=== PATIENT | female | born 1985 | race Caucasian/White ===

== ENCOUNTER → 2019-07-03 14:30 | Outpatient (BNVA) | payer BC, SELFPAY | PROVIDERS: Family Provider Family Medicine; PCP Family Medicine; Visit Provider Nurse Practitioner Women's Health | DX: Z30.46 Encounter for surveillance of implantable subdermal contraceptive (principal); N87.1 Moderate cervical dysplasia | CPT/HCPCS: 88175 ==

== ENCOUNTER → 2019-10-11 16:32 | Outpatient (BNVA) | payer BC, SELFPAY | PROVIDERS: Family Provider Family Medicine; PCP Family Medicine; Visit Provider Obstetrics & Gynecology | DX: Z32.01 Encounter for pregnancy test, result positive (principal) | CPT/HCPCS: 81025 ==

== ENCOUNTER → 2019-11-14 11:11 | Outpatient (BNVA) | payer BC, SELFPAY | PROVIDERS: Family Provider Family Medicine; PCP Family Medicine; Visit Provider Obstetrics & Gynecology | DX: O09.299 Supervision of pregnancy with other poor reproductive or obstetric history, unspecified trimester (principal); Z86.32 Personal history of gestational diabetes | CPT/HCPCS: 80053; 80307; 82950; 83036; 85027; 86592; 86762; 86803; 86850; 86900; 87340 ==

== ENCOUNTER → 2019-11-28 00:01 | Outpatient (BNVA) | payer BC, SELFPAY | PROVIDERS: Family Provider Family Medicine; PCP Family Medicine; Visit Provider Obstetrics & Gynecology | DX: O09.90 Supervision of high risk pregnancy, unspecified, unspecified trimester (principal); O24.319 Unspecified pre-existing diabetes mellitus in pregnancy, unspecified trimester; N87.1 Moderate cervical dysplasia | CPT/HCPCS: 80053; 82570; 84156 ==

== ENCOUNTER → 2019-12-10 10:07 | Outpatient (BNVA) | payer BC, SELFPAY | PROVIDERS: Family Provider Family Medicine; PCP Family Medicine; Visit Provider Obstetrics & Gynecology | DX: O09.90 Supervision of high risk pregnancy, unspecified, unspecified trimester (principal) | CPT/HCPCS: 84315; 87491; 87591 ==

== ENCOUNTER → 2020-02-12 11:32 | Outpatient (BNVA) | payer BC, SELFPAY | PROVIDERS: Family Provider Family Medicine; PCP Family Medicine; Visit Provider Obstetrics & Gynecology | DX: O24.112 Pre-existing type 2 diabetes mellitus, in pregnancy, second trimester (principal) | CPT/HCPCS: 83036; 84315 ==

== ENCOUNTER → 2020-04-07 09:24 | Outpatient (BNVA) | payer BC, SELFPAY | PROVIDERS: Family Provider Family Medicine; PCP Family Medicine; Visit Provider Obstetrics & Gynecology | DX: O26.891 Other specified pregnancy related conditions, first trimester (principal); Z67.91 Unspecified blood type, Rh negative | CPT/HCPCS: 84315; 85027; 86850 ==

== ENCOUNTER → 2020-04-08 10:35 | Outpatient (BNVA) | payer BC, SELFPAY | PROVIDERS: Family Provider Family Medicine; PCP Family Medicine; Visit Provider Obstetrics & Gynecology | DX: O26.891 Other specified pregnancy related conditions, first trimester (principal); Z67.91 Unspecified blood type, Rh negative; O24.113 Pre-existing type 2 diabetes mellitus, in pregnancy, third trimester; O26.893 Other specified pregnancy related conditions, third trimester; Z3A.29 29 weeks gestation of pregnancy | CPT/HCPCS: 83036 ==

== ENCOUNTER → 2020-05-26 09:03 | Outpatient (BNVA) | payer BC, SELFPAY | PROVIDERS: Family Provider Family Medicine; PCP Family Medicine; Visit Provider Obstetrics & Gynecology | DX: O09.90 Supervision of high risk pregnancy, unspecified, unspecified trimester (principal); O24.112 Pre-existing type 2 diabetes mellitus, in pregnancy, second trimester; O99.013 Anemia complicating pregnancy, third trimester; O26.891 Other specified pregnancy related conditions, first trimester; Z67.91 Unspecified blood type, Rh negative | CPT/HCPCS: 84315; 87081 ==

== ENCOUNTER → 2020-06-12 11:22 | Outpatient (BNVA) | payer BC, SELFPAY | PROVIDERS: Family Provider Family Medicine; PCP Family Medicine; Visit Provider Obstetrics & Gynecology | DX: Z01.812 Encounter for preprocedural laboratory examination (principal); Z20.822 Contact with and (suspected) exposure to COVID-19 | CPT/HCPCS: 87635 ==

== ENCOUNTER 2020-06-15 21:45 | Inpatient (IN) | payer BC, SELFPAY ==
[2020-06-15 21:20] VITALS: BMI 29.5
[2020-06-15 21:24] VITALS: BP 132/82; PULSE 123; O2SAT 99
[2020-06-15 21:36] VITALS: BP 128/75; PULSE 114
[2020-06-15 22:26] VITALS: TEMP 36.5
[2020-06-15] MEDS: dextrose 5%-sod chloride 0.45% 1,000 ML 125 ML IV (22:49)
[2020-06-15 23:05] LABS: Glucose Point of Care 132 mg/dL (70-110)
[2020-06-15 23:16] VITALS: BP 129/69; PULSE 77
[2020-06-15 23:20] LABS: Basophils % 0.5 %; Eosinophils # 0.1 10^3/uL (0.0-0.8); Eosinophils % 1.7 %; Hematocrit 34.1 % (37.0-47.0); Hemoglobin 11.2 g/dL (11.5-15.3); Lymphocytes # 1.9 10^3/uL (0.8-4.8); Lymphocytes % 31.5 %; Mean Corpuscular HGB Conc 32.8 g/dL (30.0-36.0); Mean Corpuscular Hemoglobin 31.5 pg (28.0-34.0); Mean Corpuscular Volume 96.1 fL (81-99); Monocytes # 0.3 10^3/uL (0.2-0.9); Monocytes % 4.7 %; Neutrophils # 3.65 10^3/uL (1.8-7.7); Neutrophils % 61.3 %; Nucleated Red Blood Cells % 0 %; Platelet Count 211 10^3/cmm (130-400); Red Blood Count 3.55 10^6/uL (4.1-5.3); Red Cell Distribution Width 14.6 % (12.1-15.1)
[2020-06-15 23:46] VITALS: BP 119/60; PULSE 81
[2020-06-16] VITALS (42 sets, daily range): BP systolic 98–165; BP diastolic 50–92; PULSE 57–88; RESP 16; TEMP 35.7–36.8; O2SAT 99–100
[2020-06-16] MEDS: miSOPROStol 100 mcg tablet 25 MCG VAGINAL (00:05)
[2020-06-16] MEDS: lactated ringers 1,000 ML 999 ML IV (02:28)
--- NOTE | 2020-06-16 06:00 | ANES.PREANE2 ---
Pre-Anesthetic Assessment Pre-Anesthetic Assessment: Height/Weight: Height 1.78 m Weight 93.44 kg Temp Pulse BP Pulse Ox 98.3 F 77 135/72 100 06/16/20 02:00 06/16/20 06:10 06/16/20 06:10 06/16/20 06:03 Preop Diagnosis: IUP Was Beta Malathi taken within 24 hours: N/A Was Clonidine taken within 24 hours: N/A Social: Social History: Tobacco (chew) Exam: Pre-Anes Outpt Exam: alert, oriented x 3 and clear to auscultation bilaterally Airway: Submandibular: WNL Cervical ROM: WNL MP: 2 History/ROS: No significant history except as noted Pulmonary: Pulmonary: None reported CV/HEM: CV/HEM: Anemia : : None reported Hepatic: Hepatic: None reported GI: GI: None reported Metabolic: Metabolic: DM Musc/skel: Musc/skel: None reported Neuropsych: Neuropsych: None reported Anesthetic Plan: ASA status: 2 Anesthesia: Anesthesia Evaluation Risk of > 500 ml blood loss (7ml/kg in children): No Meds/Allergies Current Medications: Current Medications Generic Name Dose Route Start Last Admin Trade Name Freq PRN Reason Stop Dose Admin Lactated Ringer's 1,000 mls @ 999 m ls/hr 06/15/20 22:26 06/16/20 02:28 Lactated Ringers IV 999 mls/hr .Q1H1M PRN Administration Per L&D Rescitati on Protocol Dextrose/Sodium Ch loride 1,000 mls @ 125 m ls/hr 06/15/20 22:30 06/15/20 22:49 Dextrose 5%-Sod Chloride 0.45% IV 125 mls/hr .Q8H NORA Administration Misoprostol 25 mcg 06/15/20 22:30 06/16/20 00:05 Misoprostol 100 Mcg Tablet VAGINAL 06/16/20 10:31 25 mcg Q4H NORA Administration PFSH Anesthesia PFSH: Medical History Diabetes mellitus Diagnosed 11/26/2019 at time of her second with a hemoglobin A1c of 9 No pertinent past medical history Denies chronic hypertension, asthma, DVT/PE, seizures. PMD: none Surgical History No pertinent past surgical history Family History Family/Other Adopted Patient was adopted and does not know the details of her biological family history. Social History Quit status (tobacco): has quit using tobacco Alcohol intake: never Additional social history: - Tobacco use: chewing tobacco-- stopped when found out she was Alcohol use: one beer Few times a week prior to Drug use: Never Female Reproductive History: : 2 Data Anesthesia CBC & Chem 7: 06/15/20 22:13 Other Labs: Laboratory Results - last 48 hr 06/15/20 06/15/20 06/15/20 22:13 22:13 22:37 WBC 6.0 RBC 3.55 L Hgb 11.2 L Hct 34.1 L MCV 96.1 MCH 31.5 MCHC 32.8 RDW 14.6 Plt Count 211 MPV 10.0 Neut % (Auto) 61.3 Lymph % (Auto) 31.5 [place] % (Auto) 4.7 Eos % (Auto) 1.7 Baso % (Auto) 0.5 Neut # (Auto) 3.65 Lymph # (Auto) 1.9 [place] # (Auto) 0.3 Eos # (Auto) 0.1 Baso # (Auto) 0.0 Nucleated RBC % (auto) 0 Nucleated RBCs # 0.0 POC Glucose 132 H Blood Type A Negative Rho(D) Type Negative / 0 Antibody Screen Positive Antibody Identification Anti-D Cardiac Studies: No Data to Display
[2020-06-16 06:23] LABS: Glucose Point of Care 129 mg/dL (70-110)
[2020-06-16 06:23] LABS: Glucose Point of Care 89 mg/dL (70-110)
[2020-06-16] MEDS: dextrose 5%-sod chloride 0.45% 1,000 ML 125 ML IV (06:23)
--- NOTE | 2020-06-16 06:23 | ANES.PROC ---
Anesthesia Procedures Procedure/Date: 06/16/20 Epidural: Time Out Performed: Yes Consents Signed: Procedure Consent Consent: requested by attending/covering physician Lumbar Level: L3-L4 Epidural position: sitting Epidural procedure: sterile prep of area, 1% lidocaine to numb the area, 18 g needle, negative for paresthesia passed, neg for paresthesia, test dose given, 1.5% xylocaine 1:200k epi (5ml), placed PCEA, no systemic response, sterile dressing applied, L.U.D. no apparent complications and 0.2% Ropiavacaine @ mls/hr (13)
[2020-06-16] MEDS: carboprost tromethamine 250 mcg/mL Amp IM (11:39)
[2020-06-16] MEDS: miSOPROStol 200 mcg Tablet 800 MCG PR (11:40)
[2020-06-16] MEDS: ibuprofen 800 mg tablet PO ×2 (15:29→21:25)
[2020-06-16 16:31] LABS: Glucose Point of Care 68 mg/dL (70-110)
[2020-06-16 16:31] LABS: Glucose Point of Care 91 mg/dL (70-110)
[2020-06-16 16:31] LABS: Glucose Point of Care 123 mg/dL (70-110)
--- NOTE | 2020-06-16 16:45 | P.PCNOB_ITS ---
Delivery Note: Date of delivery: June 16, 2020 - PRE-DELIVERY DIAGNOSIS: 34-year-old 2 para 1-0-0-1 at 39 weeks and 0 days Type II diabetic on insulin Rh- GBS negative Anemia on iron History of macrosomia POST-DELIVERY DIAGNOSIS: Vaginal delivery on 06/16/2020 PROCEDURE: Vaginal delivery on 06/16/2020 ANESTHESIA: Epidural anesthesia DELIVERING PHYSICIAN: Anisa Thibodeaux FACOG PRE-DELIVERY COURSE: Ms. Chavis is a 34-year-old 2 para 1-0-0-1 at 38 weeks and 6 days who presented for scheduled induction of labor at 9 PM on 06/15/2020. She is a type II diabetic well controlled on insulin. On initial evaluation she was noted to be 2 cm 50% and -3 station. Induction was started on 06/16/2020 at midnight when she was 39 weeks gestation. Cytotec was placed and with this she started to have regular contractions every 2 to 3 minutes. 4 hours later she had made some cervical change to 3 cm 50% and -3 station however had regular 2 to 3-minute contractions and was growing very uncomfortable. An epidural was placed and she was much more comfortable after this. On exam at 6:40 AM on 06/16/2020 after the epidural was placed she was noted to be 4 to 5 cm, 60% and - 3 station and artificial rupture of membranes was performed with clear blood- tinged fluid. tracing was category 1. She made progressive cervical change and was fully dilated at 10:45 AM. She was set up in lithotomy position and started pushing by 11:15 AM. Fingersticks during this time were adjusted with IV fluids. Vital signs were otherwise stable DELIVERY NOTE: She was set up in lithotomy position and was pushing effectively. She was noted to be +3 station and continued pushing well. The head delivered in TAWANA position, no nuchal cord was present. The shoulders and rest of the body followed with her next push. The baby's mouth and nose were suctioned and the baby was placed on the mother's belly. Once cord pulsations stopped the cord was clamped and cut. The placenta delivered spontaneously intact with membranes and was discarded. The fundus was noted to be firm and well contracted. The lower uterine segment was extremely boggy and did not respond well to uterine massage. 800 mcg of Cytotec and a single dose of Hemabate were given and uterine massage was continued and with this the lower uterine segment tone improved. The vagina and cervix were inspected and no cervical or sulcal lacerations were noted. The perineum was noted to be intact except for a first- degree vaginal laceration that was repaired with a rghbrh-tm-aoort suture. Baby girl, Iain Dolna born at 11:18 AM on 06/16/2020 with 9/9, weighing 7 pounds 15 ounces, 3590 g, 20 inches long. Placenta was delivered spontaneously intact with membranes. Cotyledons were intact , centrally inserted umbilical cord with 3 vessels noted. Estimated blood loss 400 mL. Complications-mild uterine atony which responded to medication. Both baby and mother were left to recover in a stable condition. This documentation was created by [employer] mine engineering manager software (known for inherent mine engineering manager error). Every effort was made to assure accuracy of mine engineering manager. Any obvious errors or omissions should be clarified with the author of the document. Coding Level of Care Code Acute Rotary Engraver for Chg Fwd History History History 2 Term 2 Miscarriages/Ectopic 0 0 Living Children 2 Other History: 2 Para 2002, x 2 1: 06/02/2017--vaginal delivery at 39 weeks gestation. Male;([place]) 9.5 pounds (4340g) complicated by diet-controlled gestational diabetes; hemorrhage. [place] [facility] [place]. Vizcaino Gravid 2---> 06/16/2020--vaginal delivery at 39 weeks gestation-induction for type 2 [id number] on insulin. Delivered by Dr. Thibodeaux at [facility] [place]. Baby girl weighing 7 pounds 15 ounces-Iain Dolan. First-degree vaginal laceration, minimal uterine atony which responded well to medication.
[2020-06-16 19:22] LABS: Glucose Point of Care 119 mg/dL (70-110)
[2020-06-17 00:18] LABS: Hematocrit 34.1 % (37.0-47.0); Mean Corpuscular HGB Conc 32.3 g/dL (30.0-36.0); Mean Corpuscular Hemoglobin 31.4 pg (28.0-34.0); Mean Corpuscular Volume 97.4 fL (81-99); Mean Platelet Volume 9.9 fL (7.4-10.4); Platelet Count 197 10^3/cmm (130-400); Red Cell Distribution Width 14.5 % (12.1-15.1); White Blood Count 10.2 10^3/uL (4.0-10.0)
[2020-06-17 05:00] VITALS: BP 126/72; PULSE 65; RESP 16; O2SAT 100
[2020-06-17 06:28] LABS: Glucose Point of Care 78 mg/dL (70-110)
--- NOTE | 2020-06-17 07:06 | PM.DCS ---
Discharge Providers Date of Admission: 06/15/20 21:45 Date of Discharge: June 17, 2020 Attending Provider at Admission: Anisa Cr MD Attending Provider at Discharge: Anisa Cr MD Primary Care Provider: RE-DELIVERY DIAGNOSIS: 34-year-old 2 para 1-0-0-1 at 39 weeks and 0 days Type II diabetic on insulin Rh- GBS negative Anemia on iron History of macrosomia POST-DELIVERY DIAGNOSIS: Vaginal delivery on 06/16/2020 PROCEDURE: Vaginal delivery on 06/16/2020 ANESTHESIA: Epidural anesthesia DELIVERING PHYSICIAN: Anisa Thibodeaux FACOG PRE-DELIVERY COURSE: Ms. Chavis is a 34-year-old 2 para 1-0-0-1 at 38 weeks and 6 days who presented for scheduled induction of labor at 9 PM on 06/15/2020. She is a type II diabetic well controlled on insulin. On initial evaluation she was noted to be 2 cm 50% and -3 station. Induction was started on 06/16/2020 at midnight when she was 39 weeks gestation. Cytotec was placed and with this she started to have regular contractions every 2 to 3 minutes. 4 hours later she had made some cervical change to 3 cm 50% and -3 station however had regular 2 to 3-minute contractions and was growing very uncomfortable. An epidural was placed and she was much more comfortable after this. On exam at 6:40 AM on 06/16/2020 after the epidural was placed she was noted to be 4 to 5 cm, 60% and -3 station and artificial rupture of membranes was performed with clear blood-tinged fluid. tracing was category 1. She made progressive cervical change and was fully dilated at 10:45 AM. She was set up in lithotomy position and started pushing by 11:15 AM. Fingersticks during this time were adjusted with IV fluids. Vital signs were otherwise stable DELIVERY NOTE: She was set up in lithotomy position and was pushing effectively. She was noted to be +3 station and continued pushing well. The head delivered in TAWANA position, no nuchal cord was present. The shoulders and rest of the body followed with her next push. The baby's mouth and nose were suctioned and the baby was placed on the mother's belly. Once cord pulsations stopped the cord was clamped and cut. The placenta delivered spontaneously intact with membranes and was discarded. The fundus was noted to be firm and well contracted. The lower uterine segment was extremely boggy and did not respond well to uterine massage. 800 mcg of Cytotec and a single dose of Hemabate were given and uterine massage was continued and with this the lower uterine segment tone improved. The vagina and cervix were inspected and no cervical or sulcal lacerations were noted. The perineum was noted to be intact except for a first-degree vaginal laceration that was repaired with a jkaphn-ab-pdyth suture. Baby girlIain born at 11:18 AM on 06/16/2020 with 9/9, weighing 7 pounds 15 ounces, 3590 g, 20 inches long. Placenta was delivered spontaneously intact with membranes. Cotyledons were intact , centrally inserted umbilical cord with 3 vessels noted. Estimated blood loss 400 mL. Complications-mild uterine atony which responded to medication. Both baby and mother were left to recover in a stable condition. HOSPITAL COURSE: She underwent an uncomplicated vaginal delivery on 06/16/2020. She did well on day 0 and was ambulating well, tolerating regular diet, voiding freely, passing flatus. She was breast/bottle-feeding without difficulty and bonding well with her daughter. Pain was well-controlled with by mouth pain medication. She denied nausea, vomiting, fever, chills, shortness of breath, leg pain. She had moderate vaginal bleeding. On day # 1 she continued to do well with stable vital signs and stable hemoglobin at 11.0. Fingersticks were monitored and she was largely within goal and did not require any insulin. Plan will be to stop all hypoglycemic agents and we will reassess in 1 to 2 weeks--patient to monitor fingersticks fasting and 2 hours post meals--total of 4 values and bring this to her next visit. She was discharged home on day 1 in a stable condition, as she desired early discharge. Warning signs for endometritis, mastitis, DVT/PE were reviewed with her. Post delivery activity restrictions were also reviewed with her at all her questions were answered to her satisfaction. She plans on using control pills for contraception. She was given RhoGam prior to discharge . EXAM AT DISCHARGE: Gen.: No acute distress Heart: S1-S2 heard, regular rate and rhythm Lungs: Clear to auscultation bilaterally Abdomen: Soft, fundus firm below umbilicus, Legs: No calf tenderness, trace bilateral pitting pedal edema. CONDITION AT DISCHARGE: Stable This documentation was created by [email or web address] button buttonhole marker software (known for inherent button buttonhole marker error). Every effort was made to assure accuracy of button buttonhole marker. Any obvious errors or omissions should be clarified with the author of the document. Reason for Visit Reason for Visit: SCHEDULED INDUCTION Physical Exam Urinary Catheter Management^: Patel: Cath Placed During This Visit: yes, but has since been removed by the nurse Reason for Continuing Indwelling Catheter: Acute Urinary Retention or Obstruction Urinary Catheter Date of Insertion: 06/16/20 Urinary Catheter Time of Insertion: 08:05 Date Urinary Catheter Removed: 06/16/20 Time Urinary Catheter Discontinued: 11:10 Discharge Data Data Completed and Pending: Pending at discharge Category Date Time Status Antibody Identifi cation Routine Lab 06/15/20 22:13 Results Complete Crossmat ch Routine Lab 06/15/20 22:13 Results Rho D Immune Glob ulin Routine Lab 06/15/20 22:13 Results Type and Screen R outine Lab 06/15/20 22:13 Results Labs from last 24 hours 06/17/20 06/17/20 06/17/20 06:24 00:05 00:05 WBC 10.2 H RBC 3.50 L Hgb 11.0 L Hct 34.1 L MCV 97.4 MCH 31.4 MCHC 32.3 RDW 14.5 Plt Count 197 MPV 9.9 POC Glucose 78 Blood Type Rho(D) Type Antibody Screen Antibody Identific ation Screen Negative 06/16/20 06/16/20 06/16/20 19:14 16:22 11:44 WBC RBC Hgb Hct MCV MCH MCHC RDW Plt Count MPV POC Glucose 119 H 123 H 68 L Blood Type Rho(D) Type Antibody Screen Antibody Identific ation Screen 06/16/20 06/15/20 08:18 22:13 WBC RBC Hgb Hct MCV MCH MCHC RDW Plt Count MPV POC Glucose 91 Blood Type A Negative Rho(D) Type Negative / 0 Antibody Screen Positive Antibody Identific ation Anti-D Screen Vitals: Last Vital Signs Temp 98.0 F 06/16/20 21:20 Pulse 65 06/17/20 05:00 Resp 16 06/17/20 05:00 BP 126/72 05/12/21 05:00 Pulse Ox 100 06/17/20 05:00 Discharge Plan Discharge Patient Disposition: Home Condition: Stable Prescriptions: New ibuprofen 800 mg tablet 800 mg PO Q8H Qty: 30 RF: 0 docusate sodium 100 mg Capsule 100 mg PO BID PRN (Reason: constipation) Qty: 30 RF: 0 Continued prenat.vits,marlena,isu-jgzs-sdsbt Tablet 1 tab PO DAILY RF: 0 Discontinued triamcinolone acetonide 0.1 % cream 1 applic topical DAILY PRN (Reason: Rash) RF: 0 ferrous sulfate 325 mg (65 mg iron) tablet 325 mg PO BID RF: 0 Novolin N NPH U-100 Insulin 100 unit/mL suspension See Rx Instructions SUBCUT .COMPLEX Qty: 10 RF: 0 Levemir FlexTouch U-100 Insuln 100 unit/mL (3 mL) insulin pen 16 unit SUBCUT DAILY RF: 0 Discharge Orders: Discharge Order (Routine); Ordered 06/17/20 Ordered By: Anisa Cr Referrals: Anisa Cr MD [Physician] - (2-week diabetic check and 6-week visit Your 2 week diabetic check has been scheduled for 07/01/2020 at 1:45 pm. Your 6 week check has been scheduled for 07/28/2020 at 9:[address] Thibodeaux.) Discharge Diet: Usual diet Patient Instructions: Depression (GEN), Bleeding (DC), OB Discharge Report, OB Food/Drug Interaction Guide, OB Proud Parent Packet, OB Vaginal Deliveries, Abnormal Bleeding, Depression Activity Restrictions/Additional Instructions: Pelvic rest for 6 weeks, no heavy lifting for 6 weeks Fingerstick glucose levels fasting and 2-hour post meals Discharge Attestations Time Spent in Discharge Care*: greater than 30 min Quality Metrics Clinical Quality Measures During this hospital stay, did patient experience: None Coding Level of Care Code Acute Chg FW DC note
[2020-06-17] MEDS: prenatal vitamin Capsule 1 CAP PO (10:12)
[2020-06-17] MEDS: ibuprofen 800 mg tablet PO (10:12)
[2020-06-17 10:17] LABS: Glucose Point of Care 89 mg/dL (70-110)
[2020-06-17 12:23] VITALS: BP 120/77; PULSE 64; RESP 14; TEMP 36.7
== END 2020-06-17 12:47 | disposition home or self-care (01) | DRG 807 ==
LOC: OBGYN 22:46 → OPOB 06-16 10:03
PROVIDERS: Admitting Provider Obstetrics & Gynecology; PCP Family Medicine; Visit Provider Obstetrics & Gynecology
DX: O24.12 Pre-existing type 2 diabetes mellitus, in childbirth (principal); Z37.0 Single live birth; O70.0 First degree perineal laceration during delivery; O99.02 Anemia complicating childbirth; O75.89 Other specified complications of labor and delivery; O26.893 Other specified pregnancy related conditions, third trimester; Z3A.38 38 weeks gestation of pregnancy; Z79.4 Long term (current) use of insulin; Z67.11 Type A blood, Rh negative
CPT/HCPCS: 36415; 36416; 51702; 59025; 59409; 80500; 82962; 83986; 85025; 85027; 85460; 86850; 86870; 86900; 90384; 96372; 98960; J2795; J7799

== ENCOUNTER → 2020-08-04 13:00 | Outpatient (BNVA) | payer BC, SELFPAY | PROVIDERS: PCP Family Medicine; Visit Provider Obstetrics & Gynecology | DX: N87.1 Moderate cervical dysplasia (principal); Z12.4 Encounter for screening for malignant neoplasm of cervix | CPT/HCPCS: 88175 ==

== ENCOUNTER → 2021-08-18 13:23 | Outpatient (BNVA) | payer BC, SELFPAY | PROVIDERS: PCP Family Medicine; Visit Provider Nurse Practitioner Women's Health | DX: N92.6 Irregular menstruation, unspecified (principal) | CPT/HCPCS: 84702 ==

== ENCOUNTER → 2021-08-20 14:22 | Outpatient (BNVA) | payer BC, SELFPAY | PROVIDERS: PCP Family Medicine; Visit Provider Nurse Practitioner Women's Health | DX: O24.311 Unspecified pre-existing diabetes mellitus in pregnancy, first trimester (principal) | CPT/HCPCS: 83036; 84443; 84702 ==

== ENCOUNTER → 2021-08-25 14:42 | Outpatient (BNVA) | payer BC, SELFPAY | PROVIDERS: PCP Family Medicine; Visit Provider Nurse Practitioner Women's Health | DX: O24.311 Unspecified pre-existing diabetes mellitus in pregnancy, first trimester (principal); Z3A.00 Weeks of gestation of pregnancy not specified | CPT/HCPCS: 84702 ==

== ENCOUNTER → 2021-08-30 09:27 | Outpatient (BNVA) | payer BC, SELFPAY | PROVIDERS: PCP Family Medicine; Visit Provider Obstetrics & Gynecology | DX: O20.0 Threatened abortion (principal); Z3A.00 Weeks of gestation of pregnancy not specified | CPT/HCPCS: 84702 ==

== ENCOUNTER 2021-09-02 09:38 | Outpatient (CLI) | payer BC, SELFPAY ==
[2021-09-02 10:19] LABS: Basophils # 0.1 10^3/uL (0.0-0.1); Eosinophils # 0.2 10^3/uL (0.0-0.8); Eosinophils % 3.3 %; Hematocrit 39.4 % (37.0-47.0); Hemoglobin 13.3 g/dL (11.5-15.3); Lymphocytes # 2.2 10^3/uL (0.8-4.8); Lymphocytes % 42.7 %; Mean Corpuscular HGB Conc 33.8 g/dL (30.0-36.0); Mean Corpuscular Hemoglobin 30.8 pg (28.0-34.0); Mean Corpuscular Volume 91.2 fl (81-99); Mean Platelet Volume 10.2 fL (7.4-10.4); Monocytes # 0.1 10^3/uL (0.2-0.9); Monocytes % 2.8 %; Neutrophils # 2.54 10^3/uL (1.8-7.7); Nucleated Red Blood Cells % 0 %; Platelet Count 301 10^3/cmm (130-400); Red Blood Count 4.32 10^6/uL (4.1-5.3); Red Cell Distribution Width 13.2 % (12.1-15.1); White Blood Count 5.1 10^3/uL (4.0-10.0)
== END 2021-09-02 09:39 | disposition home or self-care (01) ==
LOC: LAB 09:41
PROVIDERS: PCP Family Medicine; Visit Provider Nurse Practitioner Women's Health
DX: O03.4 Incomplete spontaneous abortion without complication (principal)
CPT/HCPCS: 36415; 85025; 86850; 86900

== ENCOUNTER → 2021-09-06 09:31 | Outpatient (BNVA) | payer BC, SELFPAY | PROVIDERS: PCP Family Medicine; Visit Provider Nurse Practitioner Women's Health | DX: O20.0 Threatened abortion (principal); Z3A.00 Weeks of gestation of pregnancy not specified | CPT/HCPCS: 84702 ==

== ENCOUNTER → 2022-02-15 10:28 | Outpatient (BNVA) | payer BC, SELFPAY | PROVIDERS: PCP Family Medicine; Visit Provider Nurse Practitioner Women's Health | DX: Z34.90 Encounter for supervision of normal pregnancy, unspecified, unspecified trimester (principal) | CPT/HCPCS: 81025; 83036; 84315; 85025 ==

== ENCOUNTER → 2022-02-25 09:48 | Outpatient (BNVA) | payer BC, SELFPAY | PROVIDERS: PCP Family Medicine; Visit Provider Obstetrics & Gynecology | DX: Z34.90 Encounter for supervision of normal pregnancy, unspecified, unspecified trimester (principal) | CPT/HCPCS: 80307; 84315; 86592; 86762; 86803; 86850; 86900; 87086; 87340; 87806 ==

== ENCOUNTER → 2022-03-04 12:23 | Outpatient (BNVA) | payer BC, SELFPAY | PROVIDERS: PCP Family Medicine; Visit Provider Obstetrics & Gynecology | DX: Z36.87 Encounter for antenatal screening for uncertain dates (principal) | CPT/HCPCS: 76801 ==

== ENCOUNTER → 2022-03-28 10:20 | Outpatient (BNVA) | payer BC, SELFPAY | PROVIDERS: PCP Family Medicine; Visit Provider Obstetrics & Gynecology | DX: O09.90 Supervision of high risk pregnancy, unspecified, unspecified trimester (principal); O09.71 Supervision of high risk pregnancy due to social problems, first trimester | CPT/HCPCS: 84315; 87491; 87591; 87661; 88175 ==

== ENCOUNTER → 2022-04-14 09:27 | Outpatient (BNVA) | payer BC, SELFPAY | PROVIDERS: PCP Family Medicine; Visit Provider Nurse Practitioner Women's Health | DX: O09.71 Supervision of high risk pregnancy due to social problems, first trimester (principal); Z3A.00 Weeks of gestation of pregnancy not specified | CPT/HCPCS: 82950; 84315 ==

== ENCOUNTER → 2022-04-28 14:26 | Outpatient (BNVA) | payer BC, SELFPAY | PROVIDERS: PCP Family Medicine; Visit Provider Obstetrics & Gynecology | DX: Z34.92 Encounter for supervision of normal pregnancy, unspecified, second trimester (principal) | CPT/HCPCS: 76805 ==

== ENCOUNTER → 2022-05-19 09:55 | Outpatient (BNVA) | payer BC, SELFPAY | PROVIDERS: PCP Family Medicine; Visit Provider Obstetrics & Gynecology | DX: Z36.9 Encounter for antenatal screening, unspecified (principal) | CPT/HCPCS: 76816 ==

== ENCOUNTER → 2022-06-28 11:00 | Outpatient (BNVA) | payer BC, SELFPAY | PROVIDERS: PCP Family Medicine; Visit Provider Obstetrics & Gynecology | DX: O09.71 Supervision of high risk pregnancy due to social problems, first trimester (principal); O26.899 Other specified pregnancy related conditions, unspecified trimester; Z67.91 Unspecified blood type, Rh negative | CPT/HCPCS: 84315; 86900 ==

== ENCOUNTER → 2022-07-25 10:29 | Outpatient (BNVA) | payer BC, SELFPAY | PROVIDERS: PCP Family Medicine; Visit Provider Obstetrics & Gynecology | DX: O09.90 Supervision of high risk pregnancy, unspecified, unspecified trimester (principal); Z3A.32 32 weeks gestation of pregnancy | CPT/HCPCS: 76815; 76819; 84315 ==

== ENCOUNTER → 2022-08-01 10:45 | Outpatient (BNVA) | payer BC, SELFPAY | PROVIDERS: PCP Family Medicine; Visit Provider Obstetrics & Gynecology | DX: O09.71 Supervision of high risk pregnancy due to social problems, first trimester (principal); Z3A.33 33 weeks gestation of pregnancy | CPT/HCPCS: 76819 ==

== ENCOUNTER 2022-08-01 12:17 | Outpatient (CLI) | payer BC, SELFPAY ==
[2022-08-01 12:26] VITALS: BP 135/82; PULSE 67
[2022-08-01 12:27] VITALS: RESP 17
[2022-08-01 12:41] VITALS: BP 119/62; PULSE 68
--- NOTE | 2022-08-01 12:50 | PC.NURSE ---
Pt stated told me to get NST twice a week, I will not be doing that, I will come once a week.
== END 2022-08-01 12:52 | disposition home or self-care (01) ==
LOC: OPOB 12:23 → OBGYN 12:24
PROVIDERS: PCP Family Medicine; Visit Provider Obstetrics & Gynecology
DX: O24.419 Gestational diabetes mellitus in pregnancy, unspecified control (principal); Z3A.33 33 weeks gestation of pregnancy
CPT/HCPCS: 59025; 84315

== ENCOUNTER 2022-08-08 12:47 | Outpatient (CLI) | payer BC, SELFPAY ==
[2022-08-08 12:47] VITALS: BMI 30.5
[2022-08-08 12:58] VITALS: RESP 16
[2022-08-08 13:00] VITALS: BP 123/63; PULSE 83
[2022-08-08 13:05] VITALS: BP 120/64; PULSE 80
[2022-08-08 13:10] VITALS: BP 117/68; PULSE 75
[2022-08-08 13:15] VITALS: BP 118/65; PULSE 88
[2022-08-08 13:21] VITALS: BP 120/65; PULSE 81
== END 2022-08-08 13:37 | disposition home or self-care (01) ==
LOC: OPOB 12:55 → OBGYN 12:56
PROVIDERS: PCP Family Medicine; Visit Provider Obstetrics & Gynecology
DX: O24.419 Gestational diabetes mellitus in pregnancy, unspecified control (principal); Z3A.00 Weeks of gestation of pregnancy not specified
CPT/HCPCS: 59025; 84315; 99211

== ENCOUNTER → 2022-08-11 10:38 | Outpatient (BNVA) | payer BC, SELFPAY | PROVIDERS: PCP Family Medicine; Visit Provider Obstetrics & Gynecology | DX: O09.893 Supervision of other high risk pregnancies, third trimester (principal); Z3A.34 34 weeks gestation of pregnancy | CPT/HCPCS: 76819 ==

== ENCOUNTER → 2022-08-16 08:53 | Outpatient (BNVA) | payer BC, SELFPAY | PROVIDERS: PCP Family Medicine; Visit Provider Obstetrics & Gynecology | DX: O09.90 Supervision of high risk pregnancy, unspecified, unspecified trimester (principal); Z3A.35 35 weeks gestation of pregnancy | CPT/HCPCS: 76819 ==

== ENCOUNTER 2022-08-16 10:40 | Outpatient (CLI) | payer BC, SELFPAY ==
[2022-08-16 10:53] VITALS: BP 123/71; PULSE 68
[2022-08-16 11:09] VITALS: BP 119/65; PULSE 68
== END 2022-08-16 11:16 | disposition home or self-care (01) ==
LOC: OPOB 10:41 → OBGYN 10:43
PROVIDERS: PCP Family Medicine; Visit Provider Obstetrics & Gynecology
DX: O24.419 Gestational diabetes mellitus in pregnancy, unspecified control (principal); Z3A.00 Weeks of gestation of pregnancy not specified
CPT/HCPCS: 59025; 84315

== ENCOUNTER → 2022-08-23 08:53 | Outpatient (BNVA) | payer BC, SELFPAY | PROVIDERS: PCP Family Medicine; Visit Provider Obstetrics & Gynecology | DX: O09.90 Supervision of high risk pregnancy, unspecified, unspecified trimester (principal); Z3A.36 36 weeks gestation of pregnancy | CPT/HCPCS: 76815; 76819 ==

== ENCOUNTER 2022-08-23 10:20 | Outpatient (CLI) | payer BC, SELFPAY ==
[2022-08-23 10:20] VITALS: BMI 30.8
[2022-08-23 10:32] VITALS: BP 120/75; PULSE 75
[2022-08-23 10:47] VITALS: BP 113/71; PULSE 74
== END 2022-08-23 10:55 | disposition home or self-care (01) ==
LOC: OPOB 10:24 → OBGYN 10:25
PROVIDERS: PCP Family Medicine; Visit Provider Obstetrics & Gynecology
DX: Z36.9 Encounter for antenatal screening, unspecified (principal)
CPT/HCPCS: 59025; 84315; 87081

== ENCOUNTER → 2022-08-30 08:50 | Outpatient (BNVA) | payer BC, SELFPAY | PROVIDERS: PCP Family Medicine; Visit Provider Obstetrics & Gynecology | DX: O09.90 Supervision of high risk pregnancy, unspecified, unspecified trimester (principal); Z3A.37 37 weeks gestation of pregnancy | CPT/HCPCS: 76819; 84315 ==

== ENCOUNTER 2022-09-07 09:30 | Outpatient (CLI) | payer BC, SELFPAY ==
[2022-09-07 09:30] VITALS: BMI 30.5
[2022-09-07 09:38] VITALS: BP 117/69; PULSE 80
[2022-09-07 09:46] VITALS: RESP 18
[2022-09-07 09:53] VITALS: BP 114/62; PULSE 79
[2022-09-07 10:06] VITALS: BP 114/62; PULSE 79
== END 2022-09-07 10:06 | disposition home or self-care (01) ==
LOC: OPOB 09:33 → OBGYN 09:34
PROVIDERS: PCP Family Medicine; Visit Provider Obstetrics & Gynecology
DX: O24.419 Gestational diabetes mellitus in pregnancy, unspecified control (principal); Z3A.00 Weeks of gestation of pregnancy not specified
CPT/HCPCS: 59025; 99211

== ENCOUNTER → 2022-09-08 08:53 | Outpatient (BNVA) | payer BC, SELFPAY | PROVIDERS: PCP Family Medicine; Visit Provider Obstetrics & Gynecology | DX: O09.90 Supervision of high risk pregnancy, unspecified, unspecified trimester (principal); Z3A.39 39 weeks gestation of pregnancy | CPT/HCPCS: 76819 ==

== ENCOUNTER 2022-09-08 20:26 | Inpatient (IN) | payer BC, SELFPAY ==
[2022-09-08 20:26] VITALS: RESP 16
[2022-09-08 20:44] VITALS: BMI 30.4
[2022-09-08 21:09] LABS: Basophils % 0.4 %; Eosinophils # 0.1 10^3/uL (0.0-0.8); Eosinophils % 1.5 %; Hematocrit 31.4 % (37.0-47.0); Hemoglobin 10.3 g/dL (11.5-15.3); Lymphocytes # 2.2 10^3/uL (0.8-4.8); Lymphocytes % 28.3 %; Mean Corpuscular HGB Conc 32.8 g/dL (30.0-36.0); Mean Corpuscular Hemoglobin 29.4 pg (28.0-34.0); Mean Corpuscular Volume 89.7 fl (81-99); Mean Platelet Volume 9.8 fL (7.4-10.4); Monocytes # 0.4 10^3/uL (0.2-0.9); Monocytes % 4.8 %; Neutrophils # 5.11 10^3/uL (1.8-7.7); Neutrophils % 64.5 %; Nucleated Red Blood Cells % 0 %; Platelet Count 226 10^3/cmm (130-400); Red Cell Distribution Width 14.6 % (12.1-15.1); White Blood Count 7.9 10^3/uL (4.0-10.0)
[2022-09-08 21:29] VITALS: BP 124/73; PULSE 83; RESP 16; TEMP 36.6; TEMP 36.7
--- NOTE | 2022-09-08 21:40 | PM.OPHPUD ---
Labor & Delivery H&P Update Date of Procedure: September 09, 2022 Date H&P Performed: 09/08/22 H&P update information: I have reviewed H&P completed within last 30 days, I have examined patient prior to procedure and No changes to prior documentation Admission Diagnosis: Preop diagnosis: IUP
[2022-09-08] MEDS: miSOPROStol 100 mcg tablet 25 MCG VAGINAL (21:53)
[2022-09-08 23:32] VITALS: BP 122/70; PULSE 74
[2022-09-09] VITALS (53 sets, daily range): BP systolic 99–157; BP diastolic 51–84; PULSE 58–114; RESP 16; TEMP 36.4–36.9; O2SAT 88–100
[2022-09-09 00:08] LABS: Glucose Point of Care 113 mg/dL (70-110)
[2022-09-09] MEDS: miSOPROStol 100 mcg tablet 25 MCG VAGINAL ×2 (01:55→06:08)
[2022-09-09 04:05] LABS: Glucose Point of Care 70 mg/dL (70-110)
[2022-09-09] MEDS: dextrose 5%-lactated ringers 1,000 ML 125 ML IV (04:09)
[2022-09-09 08:26] LABS: Glucose Point of Care 78 mg/dL (70-110)
[2022-09-09] MEDS: lactated ringers 1,000 ML 999 ML IV (10:03)
[2022-09-09] MEDS: fentaNYL 50 mcg/mL INJ 2mL IVP (10:11)
[2022-09-09] MEDS: ondansetron 2 mg/ML SDV 2 mL 4 MG IVP (10:31)
--- NOTE | 2022-09-09 11:12 | P.ANESASSM_ITS ---
Pre-Anesthetic Assessment Height/Weight: Height 1.78 m Weight 96.162 kg Temp Pulse Resp BP Pulse Ox O2 Del Method 98.2 F 77 16 139/64 91 Room Air 09/09/22 09:37 09/09/22 11:09 09/09/22 10:11 09/09/22 11:08 09/09/22 11:09 09/08/22 20:44 Preop Diagnosis: IUP Labor Epidural Familial anesthetic complications: None Social No alcohol and No tobacco Exam alert, oriented x 3 and clear to auscultation bilaterally Airway Submandibular: within normal limits Cervical ROM: within normal limits Mallampati: Class II Dentition: full History/ROS No significant history except as noted Pulmonary None reported CV/HEM None reported None reported Hepatic None reported GI None reported Metabolic Diabetes Mellitus (Gestational) Musc/skel None reported Neuropsych None reported Anesthetic Plan ASA status: 2 Anesthesia: Regional (specify below) Other: Labor Epidural Medications/Allergies Home Medications Medication Instructions Recorded Confirmed Last Taken Type ferrous sulfate 325 mg (65 mg 325 mg PO DAILY 02/15/22 09/08/22 Unknown History iron) tablet prenat.vits,marlena,kgi-abdg-uqdrr 1 tab PO DAILY 02/15/22 09/08/22 Unknown History insulin NPH isoph U-100 human 100 40 unit (0.4 mL) SUBCUT QAM #10 mL 04/19/22 09/08/22 Unknown Rx unit/mL subcutaneous suspension (Humulin N NPH U-100 Insulin (isophane susp)) insulin regular human 100 unit/mL 20 unit (0.2 mL) SUBCUT QAM 04/19/22 09/08/22 Unknown Rx injection solution (Humulin R Pregestational diabetes #10 mL Regular U-100 Insulin) Allergies Allergy/AdvReac Type Severity Reaction Status Date / Time No Known Allergies Allergy Verified 09/08/22 09:33 Current Medications Generic Name Dose Route Start Last Admin Trade Name Freq PRN Reason Stop Dose Admin Fentanyl 25 - 100 mcg 09/08/22 20:36 09/09/22 10:11 Fentanyl 50 Mcg/Ml Inj 2ml IVP 25 mcg Q1H PRN Administration SEVERE PAIN Dextrose/Lactated Ringer's 1,000 mls @ 125 mls/hr 09/08/22 20:30 09/09/22 09:39 Dextrose 5%-Lactated Ringers IV Not Given .Q8H NORA Ondansetron HCl 4 mg 09/08/22 20:25 09/09/22 10:31 Ondansetron 2 Mg/Ml Sdv 2 Ml IVP 4 mg Q4H PRN Administration NAUSEA AND VOMITING PFSH Anesthesia Medical History Diabetes mellitus No pertinent past medical history Denies chronic hypertension, asthma, DVT/PE, seizures. PMD: none Surgical History No pertinent past surgical history Family History Family/Other Adopted Patient was adopted and does not know the details of her biological f amily history. Social History Substance/Drug Use: never Female Reproductive History : 4 Data Anesthesia 09/08/22 20:45 Short CBC 09/08/22 Range/Units 20:45 WBC 7.9 (4.0-10.0) 10^3/uL Hgb 10.3 L (11.5-15.3) g/dL Hct 31.4 L (37.0-47.0) % MCV 89.7 (81-99) fl Plt Count 226 (130-400) 10^3/cmm Neut % (Auto) 64.5 % Neut # (Auto) 5.11 (1.8-7.7) 10^3/uL Cardiac Studies: No Data to Display Anesthesia Procedures Epidural Lumbar Level: L3-L4
[2022-09-09] MEDS: ROPivacaine syringe 100 MG/50 ML SYRINGE 10 MG EPIDURAL (11:28)
[2022-09-09] MEDS: oxytocin 30 UNIT/500 ML BAG 999 UNIT IV (11:48)
--- NOTE | 2022-09-09 11:48 | P.ANES_ITS ---
Anesthesia Procedures Procedure/Date: 09/09/22 Epidural: Time Out Performed: Yes Consents Signed: Procedure Consent Consent: requested by attending/covering physician, from patient, risks and benefits reviewed and patient agrees to proceed Lumbar Level: L4-L5 Additional Comments: [place] at lower level without discernable procedural anatomic findings. Un eventful single pass at L4/5 with disctinct LAURY. Catheter advanced with great ease. No paresthesia or complication; very well tolerated.
--- NOTE | 2022-09-09 11:54 | PM.DELIVERY ---
Delivery Note: Date of delivery: September 09, 2022 Pre-delivery diagnoses: Term at 39 weeks. Pregestational diabetes. Post-delivery diagnoses: Same Procedure: Spontaneous vaginal delivery Delivering Physician: Bhavin Vizcaino MD Estimated blood loss (mL): 500 Pre-Delivery Course: The patient is a 37yo at 39 weeks EGA who has been receiving care from [facility] complicated by pregestational diabetes type B. Admitted for induction she denies vaginal bleeding or rupture of membranes. LMP of 12/09/21 and MALACHI of 09/15/2022 HPI: Received appropriate care. Daily vitamins since start of care. labs have all been normal, including negative for HIV. She was found to negative for Group B Strep from screening at 36 weeks. She has gained approximately 13 lbs throughout the . She denies a history of HTN during . Delivery: The patient was noted to be complete and pushing, so was placed in the dorsal lithotomy position, prepped and draped in the usual sterile fashion for a vaginal delivery. Pt. Noted to have epidural anesthesia. At [] the patient delivered a viable 39 weeks female infant weighing 3220 g with scores of 8 and 9 at one and five minutes, respectively. The vertex was delivered spontaneously over intact perineum. The patient was asked to push and the head delivered spontaneously in the TAWANA position, over an intact perineum. A nuchal cord was checked and 1 nuchal cord noted, delivered through around head as necessary. The anterior shoulder delivered easily and the posterior shoulder followed. The remainder of the was easily delivered and the oropharynx and nasopharynx was bulb suctioned. The was noted to have spontaneous cry and spontaneous movement of all four extremities. The cord was clamped x 2 and cut and noted to have 2 arteries and one vein. The was passed to the mother's at the where nursing personnel were in attendance. Cord blood sample was then obtained. The placenta delivered intact spontaneously and the uterus was explored. 20 units of Pitocin was placed in the IV bag to firm the uterus. Examination of the cervix and vaginal vault did not reveal any lacerations. A vaginal pack was then placed. Examination of the perineum showed no lacerations. The vaginal pack was then removed. The patient tolerated this procedure well, and recovered in L&D with her in their LDR room. All sponge and needle counts were correct. Post-Delivery Status: Good and stable History History History 4 Term 2 0 Miscarriages/Ectopic 1 Living Children 2 A&P Assessment and plan (1) Term delivered: (2) Pregestational diabetes mellitus, modified White class B: Plan observation Coding Level of Care Code Acute Code for Chg Fwd Diagnoses Term delivered O80 Pregestational diabetes mellitus, modified White class B O24.319
[2022-09-09] MEDS: docusate sodium 100 mg Capsule PO (16:15)
[2022-09-09] MEDS: ibuprofen 800 mg tablet PO ×2 (16:15→21:28)
[2022-09-09 17:35] LABS: Glucose Point of Care 56 mg/dL (70-110)
[2022-09-10 00:01] VITALS: BP 114/70; PULSE 63; RESP 15; TEMP 36.8; O2SAT 99
[2022-09-10 04:34] VITALS: BP 118/71; PULSE 69; RESP 15; TEMP 36.8; O2SAT 97
[2022-09-10 04:40] LABS: Hematocrit 26.4 % (37.0-47.0); Hemoglobin 8.6 g/dL (11.5-15.3); Mean Corpuscular HGB Conc 32.6 g/dL (30.0-36.0); Mean Corpuscular Hemoglobin 29.7 pg (28.0-34.0); Mean Platelet Volume 9.6 fL (7.4-10.4); Platelet Count 185 10^3/cmm (130-400); Red Cell Distribution Width 14.6 % (12.1-15.1); White Blood Count 8.3 10^3/uL (4.0-10.0)
--- NOTE | 2022-09-10 08:00 | ANE.PACU2 ---
Inpatient post-anesthesia follow up: Airway intact: Yes Vital signs: Temperature 98.0 F Pulse Rate 72 Respiratory Rate 16 Blood Pressure 118/75 Pulse Oximetry 99 Oxygen Delivery Me thod Room Air Oxygen Flow Rate Fraction of Inspir ed Oxygen Hydration adequate: Yes Nausea and vomiting: No Pain level: 1 Mental status: Baseline
--- NOTE | 2022-09-10 08:16 | P.DS_ITS ---
Discharge Providers EXPERIMENTAL PHYSICIST Date of Admission: 09/08/22 20:26 Date of Discharge: 09/10/22 Attending Provider at Admission: Bhavin Vizcaino MD Attending Provider at Discharge: Bhavin Vizcaino MD Primary Care Provider: Wil Foote DO Diagnoses at Discharge Discharge Diagnosis (1) Term delivered: Status: Acute (2) Pregestational diabetes mellitus, modified White class B: Status: Acute Reason for Visit Reason for Visit: GDM induction Hospital Course Hospital Course Mrs. Rodriguez 37 year old established patient with LMP of 12/09/21 and MALACHI of 09/15/2022 based on LMP complicated by pregestational diabetes under control admitted at 39-0/7 weeks for induction. Misoprostol for cervical ripening was given 3 times. She progressed to have a spontaneous vaginal delivery without complications. Overnight observation was uneventful. She is afebrile and hemodynamically stable day 1. Tolerating diet well. Ambulating without difficulty. She was counseled regarding pelvic rest for 6 weeks (no sex, no tampons, no vaginal douches). Return to the emergency room if any fever, increased bleeding or pain. Information Peripartum Data: Delivery Method: Vaginal Physical Exam Narrative: GA; alert and oriented x 3 HEENT: normal Breasts: engorged Nipples - skin intact Lungs; clear to auscultation Heart: regular rhythm, no murmurs. Abd: Appropriately tender. BS+. Uterine fundus below umbilicus. No Fundal Tenderness. Perineum: normal lochia. Extremities: no edema, no cyanosis, no tenderness. History History History 4 Term 2 0 Miscarriages/Ectopic 1 Living Children 2 Discharge Data Studies Completed and Pending Pending at discharge Category Date Time Status Antibody Identification Routine Lab 09/08/22 20:45 Results Complete Crossmatch Routine Lab 09/10/22 13:00 Results Rho D Immune Globulin Routine Lab 09/10/22 13:00 Results Type and Screen Routine Lab 09/10/22 13:00 Results Laboratory Results WBC 8.3 10^3/uL (4.0-10.0) 09/10/22 04:35 RBC 2.90 10^6/uL (4.1-5.3) L 09/10/22 04:35 Hgb 8.6 g/dL (11.5-15.3) L 09/10/22 04:35 Hct 26.4 % (37.0-47.0) L 09/10/22 04:35 MCV 91.0 fl (81-99) 09/10/22 04:35 MCH 29.7 pg (28.0-34.0) 09/10/22 04:35 MCHC 32.6 g/dL (30.0-36.0) 09/10/22 04:35 RDW 14.6 % (12.1-15.1) 09/10/22 04:35 Plt Count 185 10^3/cmm (130-400) 09/10/22 04:35 MPV 9.6 fL (7.4-10.4) 09/10/22 04:35 Neut % (Auto) 64.5 % 09/08/22 20:45 Lymph % (Auto) 28.3 % 09/08/22 20:45 [place] % (Auto) 4.8 % 09/08/22 20:45 Eos % (Auto) 1.5 % 09/08/22 20:45 Baso % (Auto) 0.4 % 09/08/22 20:45 Neut # (Auto) 5.11 10^3/uL (1.8-7.7) 09/08/22 20:45 Lymph # (Auto) 2.2 10^3/uL (0.8-4.8) 09/08/22 20:45 [place] # (Auto) 0.4 10^3/uL (0.2-0.9) 09/08/22 20:45 Eos # (Auto) 0.1 10^3/uL (0.0-0.8) 09/08/22 20:45 Baso # (Auto) 0.0 10^3/uL (0.0-0.1) 09/08/22 20:45 Nucleated RBC % (auto) 0 % 09/08/22 20:45 Nucleated RBCs # 0.0 /100WBC 09/08/22 20:45 POC Glucose 56 mg/dL (70-110) L 09/09/22 17:29 Blood Type A Negative 09/08/22 20:45 Rho(D) Type Negative 09/08/22 20:45 Antibody Screen Positive 09/08/22 20:45 Antibody Identification Anti-D 09/08/22 20:45 Screen Negative (Negative) 09/10/22 00:36 Vitals Last Vital Signs Temp 98.3 F 09/10/22 04:34 Pulse 69 09/10/22 04:34 Resp 15 09/10/22 04:34 BP 118/71 09/10/22 04:34 Pulse Ox 97 09/10/22 04:34 O2 Del Method Room Air 09/10/22 04:34 Discharge Plan Discharge Patient Disposition: Home Condition: Stable Prescriptions: New ibuprofen 800 mg tablet 800 mg PO TID PRN (Reason: pain) Qty: 60 0RF acetaminophen 325 mg capsule 325 mg PO Q4H PRN (Reason: fever or pain) Qty: 60 0RF docusate sodium [Colace] 100 mg capsule 100 mg PO BID Qty: 60 0RF ferrous sulfate [Iron (ferrous sulfate)] 325 mg (65 mg iron) tablet 325 mg PO BID Qty: 90 0RF Continued ferrous sulfate 325 mg (65 mg iron) tablet 325 mg PO DAILY prenat.vits,marlena,[id number] Tablet 1 tab PO DAILY Humulin N NPH U-100 Insulin 100 unit/mL suspension 40 unit SUBCUT QAM Qty: 10 3RF Rx Instructions: AM: NPH insulin 40 units SC . Hour of Sleep (HS): NPH insulin 15 units SC Humulin R Regular U-100 Insuln 100 unit/mL solution 20 unit SUBCUT QAM Qty: 10 3RF Rx Instructions: Breakfast:Regular insulin 20 units SC Dinner:Regular insulin 15 units SC Discharge Orders: Discharge Order (Routine); Ordered 09/10/22 Ordered By: Bhavin Vizcaino Discharge Diet: As Directed and Diabetic Discharge Activity: Limit activity as instructed Patient Instructions: Opioid Safety, Caring for Your Baby (GEN), Bleeding (GEN), Vaginal Delivery (GEN), Your [place]'s Appearance (GEN) Activity Restrictions/Additional Instructions: 1. Please call [facility] on next working day to make your appointment in 2 weeks to monitor glucose. 2. Please stay home until you come back to the clinic on first post- hospatilization check up. 3. Please follow instructions on your medications CAREFULLY. 4. If you have abdominal incision, do not cover it unless dressing is necessary because of drainage. OK to shower, but avoid bath. Leave steri-strips until they fall off. If they are still on one week after surgery, you may remove them. 5. If you had vaginal surgery or vaginal repair, Dr. Vizcaino may instruct you to take SITZ bath. 6. Yellow, blood tinged odorous vaginal discharge is usually normal after hysterectomy or vaginal surgeries. 7. No SEXUAL INTERCOURSE, tampons, or douches until you are completely released from the post-operative care. 8. Avoid constipation by eating right and maybe using some Metamucil or Milk of Magnesia. 9. All prescription refills are given during the working hours. Please do no wait till it runs out. Call the clinic at [phone] before your medication runs out. The clinic will get in touch with your doctor to prescribe medications if necessary. 10. Please remain within 40 mile radius from our hospital because emergencies do happen now and then during the post-operative period. 11. If you have stairs at home, take one step at a time slowly and minimize the number of trips. It helps to stay in one floor for the next few days. No lifting except what you can lift by one hand until you are released from the post-operative care. 12. Driving is discouraged until you are well healed. It may be 3-4 weeks before you feel strong enough to drive. You should be able to turn and look through the rear window without pain and you should be able to push the brake pedal very hard without pain before you drive. No fast rules, but SAFETY should be your primary concern. DO NOT drive if you are on sedating medications such as narcotics. 13. Call the clinic (during working hours) to make urgent appointment or go to the Emergency room, if any of the following occurs: i. Vaginal bleeding becomes heavy, more than a period. ii. Incision becomes red and sore, or drains pus. iii. Your TEMPERATURE is over 100.4F or you have chill. iv. IV site becomes red and swollen (a little ``knot?? is usually OK) v. Persistent nausea and vomiting vi. Persistent constipation or diarrhea vii. Rash or allergic reaction to medications. Discharge Attestations EXPERIMENTAL PHYSICIST Time Spent in Discharge Care*: greater than 30 min Coding Level of Care Code Acute Code for Chg Fwd Diagnoses Term delivered O80 Pregestational diabetes mellitus, modified White class B O24.319
[2022-09-10] MEDS: ibuprofen 800 mg tablet PO (08:33)
[2022-09-10] MEDS: prenatal vitamin Capsule 1 CAP PO (08:33)
[2022-09-10] MEDS: docusate sodium 100 mg Capsule PO (08:33)
[2022-09-10 09:10] VITALS: BP 119/70; PULSE 66; TEMP 36.8; O2SAT 99
[2022-09-10 10:47] VITALS: BP 128/76; PULSE 68; RESP 16; TEMP 36.7; O2SAT 98
[2022-09-10 12:55] VITALS: BP 118/75; PULSE 72; TEMP 36.7; O2SAT 99
== END 2022-09-10 13:37 | disposition home or self-care (01) | DRG 807 ==
LOC: OPOB 20:31 → OBGYN 20:31
PROVIDERS: Admitting Provider Obstetrics & Gynecology; PCP Family Medicine; Visit Provider Obstetrics & Gynecology
DX: O24.12 Pre-existing type 2 diabetes mellitus, in childbirth (principal); Z37.0 Single live birth; O69.81X0 Labor and delivery complicated by cord around neck, without compression, not applicable or unspecified; Z3A.39 39 weeks gestation of pregnancy; Z79.4 Long term (current) use of insulin
CPT/HCPCS: 36415; 36416; 36430; 59025; 59409; 80503; 82962; 84315; 85025; 85027; 85460; 86850; 86870; 86900; 90384; 96374; 96376; 99211; J2405; J2590; J2795; J3010; J7120; J7121

== ENCOUNTER → 2022-10-17 09:20 | Outpatient (BNVA) | payer BC, SELFPAY | PROVIDERS: PCP Family Medicine; Visit Provider Obstetrics & Gynecology | DX: Z30.017 Encounter for initial prescription of implantable subdermal contraceptive (principal); Z30.9 Encounter for contraceptive management, unspecified | CPT/HCPCS: 81025 ==